=== PATIENT | male | born 1950 | race Caucasian/White ===

== ENCOUNTER → 2019-01-23 14:40 | Outpatient (CLI) | payer MEDICARE, SELFPAY ==
--- NOTE | 2019-01-23 | DI.ECHO.S_ITS ---
[facility] +---------+ : : [address] : : : : [id number] : : : : Phone: [phone]+ Echocardiogram Report + + :Name: WELLINGTON GILBERT Study Date: 01/23/2019 Height: 71 in : :[facility] Weight: 207 lb : : Gender: Male BSA: 2.1 m2 : :: 1950 Age: 68 yrs BP: 142/108 mmHg: :Reason For Study: BRADYCARDIA : : Performed By: [facility] Staff : :Referring: ALANA DEUTSCH : + + Interpretation Summary The left ventricle is normal in size. The ejection fraction is estimated to be 60-65%. Left ventricular wall motion is normal. Diastolic parameters suggest a relaxation abnormality of the left ventricle, consistent with probable normal filling pressures. The right ventricle is normal in size and function. Pulmonary artery pressures cannot be estimated because of the lack of a measurable TR jet velocity. The left atrium is moderately dilated. Right atrial size is normal. There is no significant valvular heart disease. The aortic root is normal size. Procedure: A two-dimensional transthoracic echocardiogram with color flow and Doppler was performed. The study quality was technically adequate. There is no prior echocardiogram noted for this patient. The patient was in normal sinus rhythm during the exam. Left Ventricle: The left ventricle is normal in size. There is normal left ventricular wall thickness. The ejection fraction is estimated to be 60-65%. Left ventricular wall motion is normal. Diastolic parameters suggest a relaxation abnormality of the left ventricle, consistent with probable normal filling pressures. Right Ventricle: The right ventricle is normal in size and function. Atria: The left atrium is moderately dilated. Right atrial size is normal. The interatrial septum is intact with no evidence for an atrial septal defect. Mitral Valve: The mitral valve is normal in structure and function. There is trace mitral regurgitation. Aortic Valve: The aortic valve is trileaflet. The aortic valve opens well. There is trace aortic regurgitation. Tricuspid Valve: The tricuspid valve is normal in structure and function. There is trace tricuspid regurgitation. Pulmonary artery pressures cannot be estimated because of the lack of a measurable TR jet velocity. Pulmonic Valve: The pulmonic valve is normal in structure and function. There is no pulmonic valvular regurgitation. There is no significant valvular heart disease. Great Vessels: The aortic root is normal size. The dimensions of the ascending aorta are normal. The pulmonary artery is normal size. The IVC is of normal diameter and collapses greater than 50% with a sniff. This suggests a low right atrial pressure of 3 mm Hg. Pericardium/ Pleura There is no pericardial effusion. There is no pleural effusion. MMode/2D Measurements & Calculations LVIDd: 4.5 cm LVOT diam: 2.1 cm LVIDs: 2.9 cm Ao root diam: 3.2 cm FS: 34.3 % Aortic Jxn: 2.9 cm EPSS: 0.57 cm asc Aorta Diam: 3.3 cm IVSd: 1.1 cm LVPWd: 0.99 cm LV edmonds. diameter/BSA (cm/m^2): 2.1 LV sys. diameter/BSA (cm/m^2): 1.4 LA A2 area: 26.5 cm2 RA long axis: 4.9 cm LA A4 area: 25.3 cm2 RA area: 16.5 cm2 LA length (vol): 5.6 cm RA vol: 47.4 ml LA vol: 100.8 ml RA : 22.2 ml/m2 LA vol index: 47.1 ml/m2 IVC diam: 1.9 cm TAPSE: 2.3 cm Doppler Measurements & Calculations Ao V2 max: 122.3 cm/sec MV E max zaire: 92.0 cm/sec Ao V2 mean: 79.6 cm/sec MV A max zaire: 102.5 cm/sec Ao max P.0 mmHg MV E/A: 0.90 Ao mean P.9 mmHg Med Peak E' Zaire: 7.7 cm/sec Ao V2 VTI: 29.6 cm E/E' med: 11.9 Lat Peak E' Zaire: 10.4 cm/sec E/E' lat: 8.8 E/e' average: 10.4 MV dec time: 0.18 sec PA V2 max: 81.3 cm/sec PA V2 mean: 55.2 cm/sec PA mean P.4 mmHg PA Accel Time: 0.14 sec Reading Physician:04:48 PM
== END ==
PROVIDERS: Family Provider Physician Assistant Medical; PCP Physician Assistant Medical; Visit Provider Internal Medicine Cardiovascular Disease
DX: R00.1 Bradycardia, unspecified (principal)
CPT/HCPCS: 93306

== ENCOUNTER → 2020-08-18 11:03 | Outpatient (CLI) | payer MEDICARE, SELFPAY | PROVIDERS: Family Provider Physician Assistant Medical; PCP Physician Assistant Medical; Referring Provider Orthopaedic Surgery; Visit Provider Orthopaedic Surgery | DX: Z01.818 Encounter for other preprocedural examination (principal); Z01.812 Encounter for preprocedural laboratory examination; R73.9 Hyperglycemia, unspecified; N39.0 Urinary tract infection, site not specified; Z51.81 Encounter for therapeutic drug level monitoring | CPT/HCPCS: 93005 ==

== ENCOUNTER → 2020-09-19 11:05 | Outpatient (CLI) | payer MEDICARE, SELFPAY ==
[2020-09-19 13:23] LABS: COVID19 -Nasal RAPID Negative (Negative)
== END ==
PROVIDERS: PCP Physician Assistant Medical; Visit Provider Physician Assistant
DX: Z01.812 Encounter for preprocedural laboratory examination (principal); Z20.822 Contact with and (suspected) exposure to COVID-19
CPT/HCPCS: 87635; C9803

== ENCOUNTER 2020-09-20 16:15 | Inpatient (IN) | payer MEDICARE, SELFPAY ==
[2020-09-13 09:39] VITALS: BMI 27.8
[2020-09-20] VITALS (11 sets, daily range): BP systolic 96–147; BP diastolic 51–88; PULSE 61–76; RESP 12–18; TEMP 35.7–36.6; O2SAT 92–98; BMI 27.8
[2020-09-20] MEDS: CELECOXIB 200 MG CAPSULE PO (09:16)
[2020-09-20] MEDS: PREGABALIN 75 MG CAPSULE PO (09:16)
[2020-09-20] MEDS: LACTATED RINGERS 1,000 ML 42 ML IV ×2 (09:24→13:32)
[2020-09-20] MEDS: VANCOMYCIN 1,000 MG/200 ML PIGGYBACK 200 MG IV (10:07)
--- NOTE | 2020-09-20 10:30 | DI.RAD.S_ITS ---
PROCEDURE: XR HIP W PEL IF DONE RT 2V INDICATIONS: RT ANTERIOR HIP/ inner op TECHNIQUE: AP pelvis with lateral view(s) of the right hip(s). COMPARISON: None. FINDINGS: Spot fluoroscopic intraoperative images demonstrating expected intraoperative alignment of hip arthroplasty components Dictated by: Connor Calles M.D. on 09/20/2020 at 16:16 Approved by: Connor Calles M.D. on 09/20/2020 at 16:16
--- NOTE | 2020-09-20 10:47 | PM.PREOP ---
Pre-operative Note COVID-19 COVID-19 status: Negative Interval Note History & Physical reviewed/Exam performed by Physician: Yes Changes to H&P: No
--- NOTE | 2020-09-20 11:09 | P.OP_ITS ---
Operative Date/Time/Diagnoses Date of procedure: 09/20/20 Time of procedure: 11:10 Pre-op diagnosis: Right hip osteoarthritis Post-op diagnosis: same Procedure & Clinicians Procedure: Right total hip arthroplasty anterior approach Same procedure as scheduled: Yes Indications: The patient has had progressively worsening right hip pain with radiographic changes consistent with arthritis. Non-operative management has failed and the patient has requested total hip replacement. The risks, benefits and alternatives to surgery were discussed with the patient prior to proceeding. Risks discussed included, but were not limited to, failure to relieve pain, leg length discrepancy, dislocation, stiffness, infection, nerve damage, deep venous thrombosis, pulmonary embolism, stroke, coma, heart attack, permanent paralysis and , as well as the potential need for eventual revision of the prosthetic. Surgeon: Helena Gonzalez Retail Presentation Specialist: Jonathan Lopez Anesthesia Type: General and Spinal Operative Notes Findings: Severe right hip osteoarthritis, good quality bone good stability Closure Type: primary Specimen(s): none sent Prosthetic devices, grafts, tissues, transplants, or devices: Gonzalez and Nephew 60 mm R3 cup, anthology standard offset size 10, +0 by 36 mm Oxinium head Estimated Blood Loss (mL): 250 Blood products transfused: none Procedure in detail: The patient was brought to the operating room. Patient was carefully positioned in the supine position. Time-out was performed and antibiotics were given. Anesthesia was induced. He was positioned in the on the table in order to allow hyperextension of the hip. The right lower extremity was prepped and draped in a standard sterile fashion. An anterior right hip incision was made 1 fingerbreadth lateral to the anterior superior iliac spine a nd extended distally towards the greater trochanter. Dissection was carried out through skin and subcutaneous tissues. The skin and subcutaneous tissues were carefully injected with Lidocaine with epi. Superficial hemostasis was achieved. The fascia over the tensor fascia marion was defined and incised with a knife. Two Allis clamps were used to grasp the fascia. Tensor fascia marion was retracted laterally. A gelpi retractor was placed. Dissection was carried out down along the neck. The circumflex vessels were carefully identified and cauterized with the Aqua Mantis. There was good visualization of the femoral neck. A Cobra was placed superior to the neck and the gluteus fibers were carefully stripped from that superior aspect of the capsule. A 2nd retractor was placed along the inferior aspect of the neck. The rectus insertion along the capsule was partially released. A 3rd retractor that was then gently placed over the rim of the acetabulum under the rectus. Capsule was carefully incised and released from the intertrochanteric line circumferentially superior to the mid sagittal line and inferiorly to the mid sagittal line until the lesser trochanter was palpable. A tag stitch was placed both in the superior and inferior limb of the capsular insertion. Along the acetabulum capsule was also released up to the mid sagittal 12:00 position. A portion of the labrum was resected. A saw was used to perform an osteotomy at the level of the intertrochanteric line and the junction of the superior femoral neck leaving approximately 1 finger breath of residual inferior neck above the lesser trochanter. A 2nd cut was made along the femoral neck at the base of the head and a napkin ring of neck was removed. Corkscrew was placed in the femoral head and the head was removed without difficulty. Retractors were then repositioned around the acetabulum. Residual labrum was resected and additional osteophytes were removed. A reamer that was 4 mm below the templated size was placed by hand in the acetabulum and it was reamed to centralize the acetabulum. It was then reamed up to 2 under the templated size and fluoroscopy was brought in to confirm the position of the reaming and depth of reaming. I reamed 1 under the anticipated size. A trial cup was placed and noted that it was appropriately sized and fluoroscopy confirmed position and depth. The component was open and inserted without difficulty fluoroscopic imaging was used to confirm that the cup had been adequately seated and was well positioned. It was further stabilized with a single screw. Neutral poly liner was placed. The cup was tested and noted to be stable. Attention was then directed to the femur. The femur was gently hyperextended additional capsular release was performed as needed in order to allow adequate visualization of the proximal femur with elevation of the femur. Patient was placed in a hyperextended slightly adducted position with maximum external rotation. Box osteotome was used to check for any residual neck as well as sclerotic bone along the trochanter. [place] pepper was placed in the femur. Additional broaching was performed. Canal finder was used to determine the al ignment of the canal and position. Size 1 broach was placed. The canal was then appropriately broached up to the templated size as long as there was adequate stability of the broach and serial advancement of the broach without excessive impingement. Specific attention was directed at avoiding varus attempting to direct the distal aspect of the broach more anteriorly and avoiding excessive anteversion. Trial reduction showed acceptable range of motion, good stability, no posterior impingement, buddhist of leg length and appropriate lateral shuck. I also hyperflexed the hip and checked that there was no impingement anteriorly and there was good stability with flexion, adduction and internal rotation. Marcaine and Exparel were injected.. The stem was placed without difficulty. Repeat trial reduction and x-ray showed acceptable overall position, length, and no evidence of the femoral fracture. Final head was placed. Wound was meticulously irrigated with normal saline. The hip was reduced and additional Exparel and Marcaine were injected. The capsule was closed with interrupted nonabsorbable sutures. The fascia of the tensor was closed with interrupted and running Vicryl. No drain was placed. Any tensor fascia marion muscle that appeared to be contused or injured which was a minimal amount was carefully resected. Capsule around the tensor was injected with Exparel and Marcaine. The skin was closed with barbed stitches for the subcutaneous tissue and skin. We also used surgical glue. The wound was dressed sterilely. Brief Betadine soak was also used and was meticulously irrigated with normal saline. Patient was transferred to recovery room in satisfactory condition. Complications: none Post-operative Condition: stable Disposition: Acute Care Plan for aftercare: The patient will be maintained on a standard total hip repl acement protocol with weight bearing as tolerated and anterior hip precautions. The patient will receive Aspirin and sequential compression devices for DVT prophylaxis. The patient will be discharged home when safe for the home environment.
[2020-09-20] MEDS: CEFAZOLIN 1 GM VIAL 2 GM IV ×2 (11:41→20:06)
[2020-09-20] MEDS: TRANEXAMIC ACID 1,000 MG VIAL 1000 MG INJ ×2 (11:48→14:13)
--- NOTE | 2020-09-20 12:00 | DI.RAD.S_ITS ---
PROCEDURE: XR HIP W PEL IF DONE RT 2V INDICATIONS: RT ANTERIOR HIP TECHNIQUE: AP pelvis and lateral view of the right hip acquired. COMPARISON: [facility], CR, XR PELVIS WITH LATERAL HIP RIGHT, 08/24/2020, 14:55. [facility], CR, XR HIP W PEL IF DONE RT 2V, 09/20/2020, 12:51. FINDINGS: Bones: Patient is status post right hip arthroplasty, with hardware components in expected positions. The hip joint appears congruent. The visualized bony structures appear intact. Soft tissues: Overlying postoperative changes are noted. No suspicious soft tissue densities. IMPRESSION: Expected appearance of the right hip arthroplasty. Dictated by: Bridger Chan M.D. on 09/20/2020 at 15:46 Approved by: Bridger Chan M.D. on 09/20/2020 at 15:47
--- NOTE | 2020-09-20 12:05 | SUR.OPER ---
Supine on padded [place] table with bilateral legs secured in padded positioning boots and suspended in positioning spars, operative leg in traction per surgeon. Head on one pillow. Arm on non-operative side secured on padded armboard <90 degrees abduction. Arm on operative side padded and resting across chest then secured with tape over sheet. Padded perineal post in place per surgeon.
[2020-09-20] MEDS: SODIUM CHLORIDE IRRIG SOLUTION 250 ML, POVIDONE-IODINE SPONGE STICKS 1 APPLIC IRR (12:09)
[2020-09-20] MEDS: BUPIVACAINE LIPOSOME 266 MG/20 ML VIAL INJ (12:11)
[2020-09-20] MEDS: BUPIVACAINE 0.5% (PF) VIAL 30 ML INJ (12:12)
[2020-09-20] MEDS: EPINEPHrine 1 MG/ML SUBCUT (12:14)
[2020-09-20] MEDS: ACETAMINOPHEN 325 MG TABLET 650 MG PO ×2 (16:46→21:20)
[2020-09-20] MEDS: IBUPROFEN 400 MG TABLET PO ×2 (16:46→21:20)
[2020-09-20] MEDS: LACTATED RINGERS 1,000 ML 125 ML IV (16:47)
[2020-09-20] MEDS: ONDANSETRON 4 MG/2 ML INJ IV (17:50)
[2020-09-20] MEDS: MAG HYDROX/ALUM/SIMETH 30 ML UDC PO (21:20)
[2020-09-20] MEDS: DOCUSATE 100 MG CAPSULE PO (21:20)
[2020-09-20] MEDS: ASPIRIN EC 81 MG TABLET PO (21:20)
[2020-09-21] VITALS (7 sets, daily range): BP systolic 100–128; BP diastolic 62–72; PULSE 57–66; RESP 16–18; TEMP 36.2–36.8; O2SAT 95–98
[2020-09-21] MEDS: IBUPROFEN 400 MG TABLET PO ×5 (00:54→16:46)
[2020-09-21] MEDS: LACTATED RINGERS 1,000 ML 125 ML IV (00:55)
[2020-09-21] MEDS: OXYCODONE IR 5 MG TABLET PO (03:46)
[2020-09-21] MEDS: MAG HYDROX/ALUM/SIMETH 30 ML UDC PO (03:47)
[2020-09-21] MEDS: CEFAZOLIN 1 GM VIAL 2 GM IV (03:47)
[2020-09-21 05:21] LABS: Hematocrit 35.8 % (41-53); Hemoglobin 11.9 g/dL (13.5-17.5)
[2020-09-21] MEDS: PANTOPRAZOLE DR 20 MG TABLET PO (06:21)
--- NOTE | 2020-09-21 07:15 | PC.NURSE ---
Patient was not able to urinate and bladder scan showed 750. A in and out cath was done with a 14 maldivian and 650 urine was drained. Patient is resting in bed with no other complaints
[2020-09-21] MEDS: ACETAMINOPHEN 325 MG TABLET 650 MG PO ×2 (08:24→14:21)
[2020-09-21] MEDS: ASPIRIN EC 81 MG TABLET PO (08:25)
[2020-09-21] MEDS: TAMSULOSIN 0.4 MG CAPSULE PO (08:25)
[2020-09-21] MEDS: DOCUSATE 100 MG CAPSULE PO (08:25)
[2020-09-21] MEDS: LOSARTAN 50 MG TABLET 100 MG PO (08:27)
[2020-09-21] MEDS: hydroCHLOROthiazide 25 MG TABLET PO (08:27)
[2020-09-21] MEDS: AMLODIPINE 5 MG TABLET 10 MG PO (08:29)
--- NOTE | 2020-09-21 10:20 | PT.IIE ---
Current Diagnoses Unilateral primary osteoarthritis, right hip (09/20/20) Surgery Performed Operation Date: 09/20/20 10:45 Actual Procedures p Total Hip Arthroplasty/Anterior Approach(Right) - Helena Gonzalez MD Medical History (Last Updated 09/13/20 @ 10:26 by Felicitas Richardson RN) Back pain COPD (chronic obstructive pulmonary disease) Gastritis (~2013) GERD (gastroesophageal reflux disease) HTN (hypertension) Kidney stones Osteoarthritis Physical Therapy Inpatient Evaluation/Re-Eval M1 PT/OT-IP Prior Functional Status Start: 09/21/20 12:28 Freq: NEEDED Status: Active Protocol: Document 09/21/20 10:20 AB (Rec: 09/21/20 12:40 AB [id number]) Medical Review Prior Functional Status Medical History Reviewed Yes Communication able to make needs known Mobility and Gait pt stated that he is independent with all mobilities and ambulation wtihout AD Social History Household Members spouse Living Arrangements House Number of Floors (Floors) Two Floors Number of Stairs To Enter/Railing? pt will stay on main level of the house has 2 steps to enter with R grab bar on door edge Home Environment High Toilet,Walk in Shower Home Equipment Raised Toilet Seat w/Armrests, Shower Seat without Backrest, Hand Held Shower M2 PT-IP Current Condition Start: 09/21/20 12:28 Freq: NEEDED Status: Active Protocol: Document 09/21/20 10:20 AB (Rec: 09/21/20 12:40 AB [id number]) Physical Therapy Current Condition Current Condition Evaluation Date 09/21/20 Treatment Diagnosis s/p R CARLOS anterior approach; difficulty in walking Onset Date 09/20/20 Precautions Anterior Hip Precautions No Hip Extension,No Hip External Rotation Weight Bearing Status Weight Bearing Status Weight Bear as Tolerated Allowed Weight Bearing Amount (enter % RLE WBAT or #) (%) M3 PT-IP Subjective Start: 09/21/20 12:28 Freq: NEEDED Status: Active Protocol: Document 09/21/20 10:20 AB (Rec: 09/21/20 12:40 AB [id number]) Subjective Physical Therapy Visit Type Type Initial Evaluation Visit Start Time 10:20 Visit Stop Time 11:37 Total Visit Minutes 77 Number of DOCTOR OF DENTAL MEDICINE Visits 0 Physical Therapy Visit Comments Patient Comments pt is agreeable to do PT Therapy Pain Assessment Pain When Pain Assessed At Rest Pain Present Pain Present Pain Reported Location right hip Intensity 2 Scale Used Numeric (0 - 10) Pain Management Techniques Apply Cold,Modification of Treatment,Re-positioning, Timing of Activity with Medications M4 PT-IP Mobility and Gait Start: 09/21/20 12:28 Freq: NEEDED Status: Active Protocol: Document 09/21/20 10:20 AB (Rec: 09/21/20 12:40 AB [id number]) PT-Bed Mobility Assessment Supine to Sit Supine to Sit Standby Assistance Sit to Supine Sit to Supine Standby Assistance PT-Transfer Assessment Sit to and From Stand Sit to and from Stand Standby Assistance,Contact Guard Assistance,1 Person Assistance,Use of Upper Extremities Equipment Transfer Assistive Device Gait Belt,Front Wheeled Walker Orthotic/Prosthetic Devices or Brace: No Transfers Transfer Destination Chair Transfer Technique ambulated using FWW Transfer Ability Level of Assist Standby Assistance,Contact Guard Assistance Comments Mobility Comments educated pt on anterior hip precautions. pt's spouse in room. pt completed supine to sit SBA. completed sit to stand x 2 reps CGA and cues. pt with unsteadiness on first attempt. educated on techniques and was more stable on succeeding sit to stands. pt ambulated in room using FWW CGA and cues. sat on chair. caregiver training conducted. educated pt's spouse on how to use safety belt and how to assist pt. spouse was able to assist pt with sit to stand and assisted pt with ambulation using FWW with initial CGA and then just SBA 100 ft. educated pt on stair climbing. educated spouse on how to assist pt with stairs. completed up/down steps using SPC and SANITATION ASSOCIATE on R CGA to min A. completed x 2 sets. continues to require cues with stair climbing from PT. spouse unable to instruct and cue pt . will need further training. pt assisted back to his room. ambulated from w/c to chair using FWW. spouse assisting. postiioned pt on chair. ice pack provided. call light and table placed within reach. Gait Assessment Gait Gait Assistance Required: Standby Assistance,Contact Guard Assist Distance (Feet) 100 Able to Maintain Weight Bearing Status Yes During Gait Assistive Devices Assistive Device Gait Belt,Front Wheeled Walker Orthotic/Prosthetic Devices or Brace: No Gait Deviations General Gait Pattern Antalgic,Decreased Stride Length,Decreased Feet Clearance Factors Limiting Gait Function Factors Limiting Gait Function Decreased Activity Tolerance, Decreased Strength,Pain,Poor Balance Stair Climbing Assessment Evaluation Level of Assist On Stairs Contact Guard Assistance, Minimal Assistance Devices Stair Climbing Assistive Devices Straight Cane Technique/Endurance Stair Climbing Technique Step to Step Number of Steps Climbed 3 Query Text: Stair Climbing Set # Repetitions (reps) 2 PT-Balance Assessment Sitting Balance and Reactions Static Sitting Balance Ability Good Dynamic Sitting Balance Ability Good Standing Balance and Reactions Static Standing Balance Ability Fair Dynamic Standing Balance Ability Fair Device Used FWW M5 PT-IP Objective Assessments Start: 09/21/20 12:28 Freq: NEEDED Status: Active Protocol: Document 09/21/20 10:20 AB (Rec: 09/21/20 12:40 AB [id number]) Orientation Orientation/Cognition Level of Alertness Alert Orientation Name,Place,Situation Language Function Ability No Deficits Noted Safety Awareness Decreased Safety Awareness Memory Description No Deficits Noted Gross Range of Motion Upper Extremity ROM Assessment Within Functional Limits Strength Lower Extremity Strength Assessment Right Impaired Hip 3+/5 Knee 4+/5 Coordination Assessment Gross Coordination Gross Coordination WNL Sensation Assessment Sensation Gross Sensation WNL Muscle Tone Muscle Tone WNL Yes M6 PT-IP Treatment Start: 09/21/20 12:28 Freq: NEEDED Status: Active Protocol: Document 09/21/20 10:20 AB (Rec: 09/21/20 12:40 AB [email or web address]) Physical Therapy Treatment Exercises Exercises Heel Slides Education Education Provided Precautions,Weight Bearing Status,Post-Op Packet,Safety M7 PT-IP Assessment and Plan Start: 09/21/20 12:28 Freq: NEEDED Status: Active Protocol: Document 09/21/20 10:20 AB (Rec: 09/21/20 12:40 AB [email or web address]) PT Summary Assessment and Plan Potential Rehabilitation Potential Good Status of Condition at Evaluation Stable Summary Impairments Pain,ROM,Strength,Balance, Coordination,Sensation,Tone, Cognition,Bed Mobility, Transfers,Gait,Activity Tolerance Assessment Summary pt requiring SBA to CGA with ambulation. caregiver training conducted but requires further training especially with stair climbing . will continue to assess progress. pt plans to go home and spouse to assist and has outpt PT set up. Goals Bed Mobility Goal Independent Transfer Goal Independent,Front Wheeled Walker Gait Goal Independent,Front Wheel Walker Gait Distance 150 Other Goals up/down 2 steps without rails: using SPC/SANITATION ASSOCIATE CGA Days to Meet Goals 3 Frequency of Treatment Frequency Of Treatment Twice a Day Treatment Plan Physical Therapy Treatment Plan Bed Mobility Training,Transfer Training,Gait Training, Therapeutic Exercise,Balance Retraining,Post Op Education, Discharge Planning,Hot or Cold Pack,Neuromuscular Re-ed, Coordination Retraining,Manual Therapy Precautions Anterior Hip Precautions No Hip Extension,No Hip External Rotation Other Precautions WBAT RLE Recommendations To Nursing Amount of Assist Needed 1 Person Assist Discharge Recommendations PT Discharge Recommendations Home with Assistance, Outpatient PT Transportation Needs at Discharge Private Vehicle
--- NOTE | 2020-09-21 12:40 | PM.PNPO.1 ---
Subjective Subjective Date Patient Seen: 09/21/20 Time Patient Seen: 08:30 Interval history: Patient doing well. Mild pain. Unable to void yet. cath x 2 so far. Has 2 steps into house. Has not yet worked with PT. Exam Vital Signs (past 8 hours): - 09/21/20 07:11 09/21/20 08:27 09/21/20 11:21 Temperature 97.3 F L Pulse Rate 60 61 Respiratory Rate 16 Blood Pressure 124/70 126/72 Pulse Oximetry 97 97 Oxygen Delivery Method Room Air Oxygen Flow Rate 2 Narrative Exam Narrative: 69 yo male NAD. Dressing CDI. Motor function intact bilat. LE. Objective Labs Result Diagrams: 09/21/20 04:30 Labs: Laboratory Results - last 24 hr 09/21/20 04:30 Hgb 11.9 L Hct 35.8 L PFSH Medical History Back pain COPD (chronic obstructive pulmonary disease) Gastritis (~2013) GERD (gastroesophageal reflux disease) HTN (hypertension) Kidney stones Osteoarthritis Surgical History History of arthroscopy of left shoulder (~2013) History of vasectomy Hx of arthroscopy of left knee Hx of lithotripsy (~2014) Hx of tonsillectomy Status post trigger finger release Social History household members: spouse Smoking Status: Former smoker alcohol intake: current Assessment & Plan Post-op Postoperative Procedures: Procedures Operation Date: 09/20/20 10:45 Actual Procedure Side Surgeon p Total Hip Arthroplasty/Anterior Approach Right Helena Gonzalez MD Urinary retention. Flomax has been ordered. Try to void on own this morning. Cath. x 1 if needed Mobilize with PT. Anterior hip precautions. Possible DC this afternoon if safe and able to void on his own. Postoperative day: 1
--- NOTE | 2020-09-21 13:43 | PC.NURSE ---
Patients R.anterior hip dressing is cdi. Patient finally voided in the toilet but this was unmeasured. Bladder scanned after for 275cc. Ortho PA aware and will be coming back in a couple of hours to check on patient and write scripts for pain medication. He is moving well with one person assist and walker, is comfortable helping him and he will be working with physical therapy again soon.
--- NOTE | 2020-09-21 13:45 | PT.IPTN ---
Current Diagnoses Unilateral primary osteoarthritis, right hip (09/20/20) Surgery Performed Operation Date: 09/20/20 10:45 Actual Procedures p Total Hip Arthroplasty/Anterior Approach(Right) - Helena Gonzalez MD Physical Therapy Treatment Note M2 PT-IP Current Condition Start: 09/21/20 12:28 Freq: NEEDED Status: Active Protocol: Document 09/21/20 10:20 AB (Rec: 09/21/20 12:40 AB [email or web address]) Physical Therapy Current Condition Current Condition Evaluation Date 09/21/20 Treatment Diagnosis s/p R CARLOS anterior approach; difficulty in walking Onset Date 09/20/20 Precautions Anterior Hip Precautions No Hip Extension,No Hip External Rotation Weight Bearing Status Weight Bearing Status Weight Bear as Tolerated Allowed Weight Bearing Amount (enter % RLE WBAT or #) (%) M3 PT-IP Subjective Start: 09/21/20 12:28 Freq: NEEDED Status: Active Protocol: Document 09/21/20 13:45 AB (Rec: 09/21/20 14:43 AB [email or web address]) Subjective Physical Therapy Visit Type Type Treatment Note Visit Start Time 13:45 Visit Stop Time 14:20 Total Visit Minutes 35 Number of ADMINISTRATOR PESTICIDE Visits 0 Physical Therapy Visit Comments Patient Comments pt is agreeable to do PT Therapy Pain Assessment Pain When Pain Assessed At Rest Pain Present Pain Present Pain Reported Location right hip Intensity 3 Scale Used increases to 6/10 with weight bearing Pain Management Techniques Modification of Treatment,Re- positioning,Timing of Activity with Medications M4 PT-IP Mobility and Gait Start: 09/21/20 12:28 Freq: NEEDED Status: Active Protocol: Document 09/21/20 13:45 AB (Rec: 09/21/20 14:43 AB [email or web address]) PT-Bed Mobility Assessment Supine to Sit Supine to Sit Standby Assistance Sit to Supine Sit to Supine Standby Assistance Scooting Scooting to Edge of Bed Standby Assistance Scooting Up and Down in Bed Standby Assistance PT-Transfer Assessment Sit to and From Stand Sit to and from Stand Standby Assistance,Contact Guard Assistance,1 Person Assistance,Use of Upper Extremities Equipment Transfer Assistive Device Gait Belt,Front Wheeled Walker Orthotic/Prosthetic Devices or Brace: No Comments Mobility Comments caregiver training conducted. pt completed bed mobility supine to sit SBA. spouse was able to put safety belt on and assist pt with sit to stand and ambulation using fWW . pt completed up/down steps using SPC/rail ascending with spouse assisting and then descending steps using SPC and spouse providing CAR SEAT UPHOLSTERER. assisted pt back to his room. ambulated from w/c to bed using FWW. spouse assited. completed sit to supine SBA. positioned pt on the bed. call light and table placed wtihin reach. Gait Assessment Gait Gait Assistance Required: Standby Assistance,Contact Guard Assist Distance (Feet) 75 Able to Maintain Weight Bearing Status Yes During Gait Assistive Devices Assistive Device Gait Belt,Front Wheeled Walker Orthotic/Prosthetic Devices or Brace: No Gait Deviations General Gait Pattern Antalgic,Decreased Stride Length,Decreased Feet Clearance Factors Limiting Gait Function Factors Limiting Gait Function Decreased Activity Tolerance, Decreased Strength,Limited Range of Motion,Pain,Poor Balance,Poor Safety Awareness Stair Climbing Assessment Evaluation Level of Assist On Stairs Minimal Assistance,1 Person Assistance Devices Stair Climbing Assistive Devices Tripod Cane/Hurry Cane,Right Railing Technique/Endurance Stair Climbing Direction Ascend and Descend Stair Climbing Technique Step to Step Number of Steps Climbed 3 Stair Climbing Set # Repetitions (reps) 1 Comments Stair Climbing Comments pls refer to mobility section for details M5 PT-IP Objective Assessments Start: 09/21/20 12:28 Freq: NEEDED Status: Active Protocol: Document 09/21/20 10:20 AB (Rec: 09/21/20 12:40 AB [email or web address]) Orientation Orientation/Cognition Level of Alertness Alert Orientation Name,Place,Situation Language Function Ability No Deficits Noted Safety Awareness Decreased Safety Awareness Memory Description No Deficits Noted Gross Range of Motion Upper Extremity ROM Assessment Within Functional Limits Strength Lower Extremity Strength Assessment Right Impaired Hip 3+/5 Knee 4+/5 Coordination Assessment Gross Coordination Gross Coordination WNL Sensation Assessment Sensation Gross Sensation WNL Muscle Tone Muscle Tone WNL Yes M6 PT-IP Treatment Start: 09/21/20 12:28 Freq: NEEDED Status: Active Protocol: Document 09/21/20 13:45 AB (Rec: 09/21/20 14:43 AB [email or web address]) Physical Therapy Treatment Education Education Provided Precautions,Safety M7 PT-IP Assessment and Plan Start: 09/21/20 12:28 Freq: NEEDED Status: Active Protocol: Document 09/21/20 13:45 AB (Rec: 09/21/20 14:43 AB [email or web address]) PT Summary Assessment and Plan Potential Rehabilitation Potential Good Summary Impairments Pain,ROM,Strength,Balance, Coordination,Sensation,Tone, Cognition,Bed Mobility, Transfers,Gait,Activity Tolerance Progress Towards Goals Progressing Toward Goals Assessment Summary caregiver training conducted and spouse was able to assist pt safely. pt plans to go home with spouse to assist him . pt may go home when medically stable. Goals Bed Mobility Goal Independent Transfer Goal Independent,Front Wheeled Walker Gait Goal Independent,Front Wheel Walker Gait Distance 150 Other Goals up/down 2 steps without rails: using SPC/CAR SEAT UPHOLSTERER CGA Days to Meet Goals 3 Frequency of Treatment Frequency Of Treatment Twice a Day Treatment Plan Physical Therapy Treatment Plan Bed Mobility Training,Transfer Training,Gait Training, Therapeutic Exercise,Balance Retraining,Post Op Education, Discharge Planning,Hot or Cold Pack,Neuromuscular Re-ed, Coordination Retraining,Manual Therapy Precautions Anterior Hip Precautions No Hip Extension,No Hip External Rotation Other Precautions WBAT RLE Recommendations To Nursing Amount of Assist Needed 1 Person Assist Discharge Recommendations PT Discharge Recommendations Home with Assistance, Outpatient PT Transportation Needs at Discharge Private Vehicle
[2020-09-21] MEDS: OXYCODONE IR 5 MG TABLET 10 MG PO (16:20)
--- NOTE | 2020-09-21 17:08 | CM.DANOTE ---
Patient is a 69 yo male who was admitted on 09/20/20 for RTHA. Pt has [facility] and [employer] for insurance and his PCP is Dr. Amanda Agosto. EMR was reviewed. Per MD, pt tolerated procedure well and to work with therapies. Per RN, pt having some urinary retention. Per PT, pt was able to participate and spouse bedside for CG training and recommending safe d/c home with spouse assist and outpt PT. No bedside assessment completed at this time due to triage needs and no identified barriers. Plan: SW to follow for plan of home with spouse assist and outpt PT. No SW needs at this time, please refer if indicated. MILVIA Ye
--- NOTE | 2020-09-21 17:22 | PC.NURSE ---
Addendum entered by Kira Oglesby R.N. 09/21/20 19:05: Able to locate Dr. Gonzalez between surgical cases. Informed MD pt has voided often and significant amount and is ready to discharge pending prescriptions. These were generated per Dr. Gonzalez and provided to pt and pt's spouse. Discharge instructions provided to pt and pt's spouse in written and verbal format. Pt left hospital with spouse via wheelchair with [employer]SEM[employer] TECHNICIAN escort to private vehicle. Pt left hospital in stable condition. Aquacel dressing to right anterior hip was dry and intact. Pt able to bear own weight, ambulate with walker and transfer self from chair to wheelchair for discharge to home. Original Note: Pt requests pain meds for right hip surgical pain 10/25 stating significant spasms. Pt was given oxycodone 10 mg as per emar and ice replaced to right hip. Pt does report relief with these interventions. Pt and pt's spouse are eager for discharge now that pt has voided sufficiently. Multiple phone calls by this caption writer to locate TATYANA Castillo who per dayshift report will be discharging provider. Located PA is in the O.R. in a case and pt and pt's spouse were informed. Spouse states desires to use [facility] which closes @ 5:30 p.m. Backup plan pending TATYANA's rounding this evening is for pt and pt's spouse to use [facility] in [place] which is open until 9 p.m. Assured pt and pt's spouse pt will be not sent home without pain medications available throughout the night. Pt taking diet well.
== END 2020-09-21 19:10 | disposition home or self-care (01) | DRG 554 ==
LOC: OR 09-22 10:15 → AC 09-22 10:16
PROVIDERS: Admitting Provider Orthopaedic Surgery; PCP Physician Assistant Medical; Referring Provider Orthopaedic Surgery; Visit Provider Orthopaedic Surgery
PROC: (CPT 27130; principal; 2020-09-20 10:45)
DX: M16.11 Unilateral primary osteoarthritis, right hip (principal); I10 Essential (primary) hypertension; K21.9 Gastro-esophageal reflux disease without esophagitis; R33.9 Retention of urine, unspecified; Z87.891 Personal history of nicotine dependence; Z20.822 Contact with and (suspected) exposure to COVID-19
CPT/HCPCS: 36415; 73502; 76000; 85014; 85018; 87635; 97116; 97161; 97530; C1776; C9803; G0378; C9290; J0171; J0690; J1100; J2250; J2274; J2405; J2704; J3010

== ENCOUNTER → 2022-04-16 11:04 | Outpatient (CLI) | payer MEDICARE, SELFPAY ==
[2020-09-20 16:31] VITALS: BMI 27.8
--- NOTE | 2022-04-16 11:08 | DI.NM.S_ITS ---
PROCEDURE: NM BONE 3 PHASE RADIOPHARMACEUTICAL: 20.8 mCi Tc-99m MDP IV. INDICATIONS: Right lower quadrant pain TECHNIQUE: Multiple bone scintigrams were obtained after intravenous injection of Tc-99m MDP, including flow, blood pool, and delayed images centered to the region of interest. COMPARISON: [facility], CR, XR PELVIS WITH LATERAL HIP RIGHT, 10/11/2021, 16:20. [facility], CR, XR PELVIS WITH LATERAL HIP RIGHT, 04/03/2022, 9:51. FINDINGS: A triple phase bone scan was obtained, including flow, blood pool and delayed images centered to the hips. There is right hip arthroplasty. Flow and blood pool images demonstrate symmetrical vascular activity in pelvis and hips. Delayed images demonstrate mildly increased activity around right hip prosthesis, nonspecific but most likely secondary to postsurgical change. There is increased uptake in the left hip compatible with degenerative joint disease. IMPRESSION: 1. Right hip arthroplasty. Low-level increased uptake around the hip prosthesis is nonspecific and most compatible with postsurgical change. 2. Degenerative joint disease in left hip. Dictated by: Bonnie Watts M.D. on 04/16/2022 at 17:22 Approved by: Bonnie Watts M.D. on 04/17/2022 at 8:25
== END ==
PROVIDERS: PCP Physician Assistant Medical; Referring Provider Student in an Organized Health Care Education/Training Program; Visit Provider Student in an Organized Health Care Education/Training Program
DX: R10.31 Right lower quadrant pain (principal); M16.12 Unilateral primary osteoarthritis, left hip; Z96.641 Presence of right artificial hip joint
CPT/HCPCS: 78315; A9503

== ENCOUNTER 2022-08-26 21:20 | Emergency (ER) | payer MEDICARE, SELFPAY ==
[2020-09-20 16:31] VITALS: BMI 27.8
[2022-08-26 21:28] VITALS: BP 114/77; PULSE 60; RESP 16; TEMP 36.7; O2SAT 97; BMI 28.5
--- NOTE | 2022-08-26 22:57 | DI.CT.S_ITS ---
PROCEDURE: CT LUMBAR SPINE WO CON INDICATIONS: Left side pain TECHNIQUE: Noncontrast 3 mm thick sections acquired from the T12 level to the sacrum. Sagittal and coronal reformats were constructed. For radiation dose reduction, the following was used: automated exposure control. COMPARISON: [facility], CR, XR LUMBAR SPINE WITH FLEXION EXTENSION 5 VIEWS, 03/06/2022, 8:54. Outside Film, MR, MR LUMBAR SPINE WITHOUT CONTRAST, 03/14/2022, 15:51. FINDINGS: Image quality: Excellent. Bones: There is preserved bony alignment. No acute vertebral body compression fractures. No suspicious lytic or blastic bony lesions. There is partial fusion anteriorly at T12-L1 redemonstrated. No pars defects. T12-L1: No spinal canal or neural foraminal narrowing. L1-L2: No spinal canal or neural foraminal narrowing. L2-L3: No spinal canal or neural foraminal narrowing. L3-L4: Mild facet arthropathy and minimal disc bulge. No spinal canal narrowing. There is mild right neural foraminal narrowing. L4-L5: Minimal disc bulge and mild facet arthropathy. No spinal canal narrowing. There is mild bilateral neural foraminal narrowing. L5-S1: Small broad-based disc bulge. No spinal canal narrowing. There is minimal right neural foraminal narrowing. Soft tissues: No retroperitoneal masses or hematomas. Visualized aorta is normal in caliber. IMPRESSION: 1. No acute fracture or subluxation. 2. No high-grade spinal canal or neural foraminal narrowing. 3. Mild bilateral neural foraminal narrowing at L4-5 and on the right at L3-L4. Dictated by: Chris Marino M.D. on 08/27/2022 at 0:01 Approved by: Chris Marino M.D. on 08/27/2022 at 0:12
--- NOTE | 2022-08-26 22:57 | ED.BACK ---
HPI - Back Pain/Injury <Frederic Beal MD - Last Filed: 08/29/22 07:06> General Chief Complaint: Back Pain/Injury Stated Complaint: acute on chronic back pain Time Seen by Provider: 08/26/22 22:56 Source: patient and EMS History of Present Illness HPI Narrative: Patient flown here for complaints of left lower back pain. Patient states this is his 3rd visit to emergency department for this pain in the past 2 years. He states since his right hip surgery he is had these flare-ups. He is scheduled for reconstruction of the right hip prosthesis. Patient states he gets spasm in the left lower back. Today he has been saline and went for a walk and sat down on a bench but had immediate pain. No abdominal pain no chest pain. His having spasms to the left lower lumbar muscle area. Patient states this is not new. He is had Toradol and methocarbamol for this pain. He was given fentanyl prior to arrival by EMS. Patient denies denies any saddle paresthesia numbness tingling or weakness to the legs or feet. No bowel or bladder incontinence. Patient has not had any imaging of the lower spine Related Data Home Medications Medication Instructions Recorded Confirmed acetaminophen 500 mg tablet 1,000 mg PO BID 09/13/20 09/20/20 felodipine 10 mg tablet,extended 10 mg PO QPM 09/13/20 09/20/20 release 24 hr losartan 100 1 tab PO DAILY 09/13/20 09/20/20 mg-hydrochlorothiazide 25 mg tablet meloxicam 15 mg tablet 15 mg PO DAILY 09/13/20 09/20/20 omeprazole 20 mg capsule,delayed 20 mg PO DAILY 09/13/20 09/20/20 release tamsulosin 0.4 mg capsule 0.4 mg PO DAILY 09/13/20 09/20/20 Aleve 20 PO 09/20/20 mupirocin 2 % topical ointment topical 09/20/20 Previous Rx's Medication Instructions Recorded aspirin 81 mg tablet,delayed 81 mg PO BID #60 tabs 09/21/20 release oxycodone 5 mg tablet 5 mg PO Q3HR PRN Pain, Moderate 09/21/20 (4-6) #30 tabs polyethylene glycol 3350 17 gram 17 gm PO DAILY PRN Constipation 09/21/20 oral powder packet #20 ea diazepam 10 mg tablet 10 mg PO BID 4 days #8 tabs 06/12/23 oxycodone 5 mg tablet 5 mg PO Q6H PRN pain #12 tabs 08/27/22 Allergies Allergy/AdvReac Type Severity Reaction Status Date / Time No Known Drug Allergies Allergy Verified 09/13/20 10:15 Review of Systems <Frederic Beal MD - Last Filed: 08/29/22 07:06> Review of Systems Narrative: GENERAL: negative chills, fatigue, malaise, fever, sweats. HEENT: negative sinus pain, ear pain, sore throat RESPIRATORY: negative dyspnea, cough CARDIOVASCULAR: negative chest pain, palpitations GASTROINTESTINAL: negative nausea, vomiting, abdominal pain : negative dysuria, frequency, hematuria MUSCULOSKELETAL: Positive back and muscle or bony pain SKIN: negative rash, skin lesions NEUROLOGIC: negative weakness, numbness ROS Unobtainable: All systems reviewed & are unremarkable except as noted in HPI and below Patient History <Frederic Beal MD - Last Filed: 08/29/22 07:06> Medical History Back pain COPD (chronic obstructive pulmonary disease) Gastritis (~2013) GERD (gastroesophageal reflux disease) HTN (hypertension) Kidney stones Osteoarthritis Surgical History History of arthroscopy of left shoulder (~2013) History of vasectomy Hx of arthroscopy of left knee Hx of lithotripsy (~2014) Hx of tonsillectomy Status post trigger finger release Social History household members: spouse Smoking Status: Former smoker alcohol intake: current Smoking Status: Former smoker alcohol intake frequency: 0-2 drinks per day Substance Use Type: does not use Exam <Frederic Beal MD - Last Filed: 08/29/22 07:06> Narrative Exam Narrative: GENERAL: in no distress, not toxic not dyspneic HEAD: Normocephalic. EYES: Pupils equal round NECK: Trachea midline. CARDIOVASCULAR: Regular rate and rhythm without murmurs RESPIRATORY: Clear to auscultation. Breath sounds equal bilaterally. No wheezes, rales, or rhonchi. GASTROINTESTINAL: Abdomen soft, non-tender EXTREMITIES: No gross deformities. BACK: Reproducible left lower paralumbar muscle tenderness and spasm. Increased pain with left straight leg raise at 30?. Light touch intact to leg and foot. Shoes removed. Any type of rotation and movement in the bed trigger spasm in the left lower paralumbar muscles. NEURO: AOx4. SKIN: Warm and dry PSYCH: Not anxious, is cooperative Initial Vital Signs Initial Vital Signs: Vital Signs Temperature 98.1 F 08/26/22 21:28 Pulse Rate 60 08/26/22 21:28 Respiratory Rate 16 08/26/22 21:28 Blood Pressure 114/77 08/26/22 21:28 Pulse Oximetry 97 08/26/22 21:28 Oxygen Delivery Method Room Air 08/26/22 21:28 <Fariba Salmeron DO - Last Filed: 08/27/22 09:25> Initial Vital Signs Initial Vital Signs: Vital Signs Temperature 98.1 F 08/26/22 21:28 Pulse Rate 60 08/26/22 21:28 Respiratory Rate 16 08/26/22 21:28 Blood Pressure 114/77 08/26/22 21:28 Pulse Oximetry 97 08/26/22 21:28 Oxygen Delivery Method Room Air 08/26/22 21:28 Course <Frederic Beal MD - Last Filed: 08/29/22 07:06> Orders Ordered: Discontinued Medications Diazepam (Diazepam 10 Mg/2 Ml Syringe) 5 mg IV NOW ONE Stop: 08/26/22 22:57 Last Admin: 08/26/22 23:07 Dose: 5 mg Documented By: IRENE Diazepam (Diazepam 10 Mg/2 Ml Syringe) 5 mg IV NOW ONE Stop: 08/27/22 00:53 Last Admin: 08/27/22 01:03 Dose: 5 mg Documented By: PAWEL Hydromorphone HCl (Hydromorphone 1 Mg Inj) 1 mg IV NOW ONE Stop: 08/27/22 06:47 Last Admin: 08/27/22 07:26 Dose: 1 mg Documented By: FLAVIA Dexamethasone 20 mg/ Sodium (Chloride) 52 mls @ 208 mls/hr IV NOW ONE Stop: 08/27/22 06:46 Last Infusion: 08/27/22 07:34 Dose: 0 mls/hr Documented By: Admin: 08/27/22 07:12 Dose: 208 mls/hr Documented By: FLAVIA Ketorolac Tromethamine (Ketorolac 30 Mg/Ml Vial) 15 mg IV NOW ONE Stop: 08/26/22 22:57 Last Admin: 08/26/22 23:07 Dose: 15 mg Documented By: IRENE Vital Signs Vital signs: Vital Signs - 8 hr 08/27/22 07:34 08/27/22 08:02 Pulse Rate 56 L 61 Respiratory Rate 12 12 Blood Pressure 153/87 H 153/87 H Pulse Oximetry 96 94 Oxygen Delivery Method Room Air Room Air <Fariba Salmeron DO - Last Filed: 08/27/22 09:25> Orders Ordered: Discontinued Medications Diazepam (Diazepam 10 Mg/2 Ml Syringe) 5 mg IV NOW ONE Stop: 08/26/22 22:57 Last Admin: 08/26/22 23:07 Dose: 5 mg Documented By: IRENE Diazepam (Diazepam 10 Mg/2 Ml Syringe) 5 mg IV NOW ONE Stop: 08/27/22 00:53 Last Admin: 08/27/22 01:03 Dose: 5 mg Documented By: PAWEL Hydromorphone HCl (Hydromorphone 1 Mg Inj) 1 mg IV NOW ONE Stop: 08/27/22 06:47 Last Admin: 08/27/22 07:26 Dose: 1 mg Documented By: FLAVIA Dexamethasone 20 mg/ Sodium (Chloride) 52 mls @ 208 mls/hr IV NOW ONE Stop: 08/27/22 06:46 Last Infusion: 08/27/22 07:34 Dose: 0 mls/hr Documented By: Admin: 08/27/22 07:12 Dose: 208 mls/hr Documented By: FLAVIA Ketorolac Tromethamine (Ketorolac 30 Mg/Ml Vial) 15 mg IV NOW ONE Stop: 08/26/22 22:57 Last Admin: 08/26/22 23:07 Dose: 15 mg Documented By: IRENE Vital Signs Vital signs: Vital Signs - 8 hr 08/27/22 07:34 08/27/22 08:02 Pulse Rate 56 L 61 Respiratory Rate 12 12 Blood Pressure 153/87 H 153/87 H Pulse Oximetry 96 94 Oxygen Delivery Method Room Air Room Air MDM - Back Pain/Injury <Frederic Beal MD - Last Filed: 08/29/22 07:06> MDM Narrative Medical decision making narrative: Patient flown here for complaints of left lower back pain. Patient states this is his 3rd visit to emergency department for this pain in the past 2 years. He states since his right hip surgery he is had these flare-ups. He is scheduled for reconstruction of the right hip prosthesis. Patient states he gets spasm in the left lower back. Today he has been saline and went for a walk and sat down on a bench but had immediate pain. No abdominal pain no chest pain. His having spasms to the left lower lumbar muscle area. Patient states this is not new. He is had Toradol and methocarbamol for this pain. He was given fentanyl prior to arrival by EMS. Patient denies denies any saddle paresthesia numbness tingling or weakness to the legs or feet. No bowel or bladder incontinence. Patient has not had any imaging of the lower spine After history and exam Valium Toradol CT lumbar spine MDM CC: Left lower back pain Complicating co-morbidities: No prior history of back surgery Data collected from: Patient Medical records reviewed: No recent visit for this complaint Differential considered: Includes but not limited to sciatica lumbar radiculopathy muscle spasm falls desk aortic dissection kidney stone Exam documented above, pertinent findings include: Reproducible left paralumbar muscle tenderness and spasm Lab Test results independently reviewed as above. Pertinent findings: None indicated at this time Imaging studies independently reviewed: CT lumbar spine Consultations: None indicated at this time Treatments: Valium Toradol Re-evaluations: 12:36 a.m.. now at bedside. Patient able to sit up in bed with out significant pain. He does feel a lot better after Valium and Toradol. He feels like he can go home with his now. I did review imaging results. They do agree likely these episodes of spasm or due to his right hip malalignment. This will be corrected in the future. They do agree for short course Valium prescription as this seems to help him a lot more than the methocarbamol. It will be used for breakthrough pain. Return precautions reviewed. Neurologically intact. Nontoxic at discharge. Discussion: Appropriate for discharge home. Exam and imaging otherwise reassuring. Patient has significant improvement with Valium/antispasmodic. Neurologically intact. Return precautions reviewed. They desire discharge home Diagnosis: Back spasm 2:15 a.m.. At time of discharge spasms return. Requiring repeat Valium. However patient has intractable pain at this time and would like observation here and recheck in the morning for improvement 6:45 a.m.. Attempted to get patient up again however spasm recurred left lower back. Unable to get himself out of bed. At this time will try Dilaudid and Decadron. 7:00 a.m. Lian: Sign out to Dr Salmeron, patient is motivated to try to get home however has intense muscle spasm left lower back. Change in pain medication ordered this morning to see for improvement Patient signed out to me by Dr. Beal, I have seen evaluated patient myself. He just received Dilaudid 20 mg of dexamethasone feeling a bit better. He is now been in the emergency department for over 10 hours a back spasm. Discussion of pain management and what to do at home. This definitely does seem to be like a back spasm he is had this before hurts to breathe hurts to move hurts to touch. Unlikely to be something like dissection. The patient's pain is better after medication. Able to get dressed and get into a wheelchair. At this time no need for further workup or medication <Fariba Salmeron, - Last Filed: 08/27/22 09:25> [facility] Narrative Medical decision making narrative: Patient flown here for complaints of left lower back pain. Patient states this is his 3rd visit to emergency department for this pain in the past 2 years. He states since his right hip surgery he is had these flare-ups. He is scheduled for reconstruction of the right hip prosthesis. Patient states he gets spasm in the left lower back. Today he has been saline and went for a walk and sat down on a bench but had immediate pain. No abdominal pain no chest pain. His having spasms to the left lower lumbar muscle area. Patient states this is not new. He is had Toradol and methocarbamol for this pain. He was given fentanyl prior to arrival by EMS. Patient denies denies any saddle paresthesia numbness tingling or weakness to the legs or feet. No bowel or bladder incontinence. Patient has not had any imaging of the lower spine After history and exam Valium Toradol CT lumbar spine [facility] CC: Left lower back pain Complicating co-morbidities: No prior history of back surgery Data collected from: Patient Medical records reviewed: No recent visit for this complaint Differential considered: Includes but not limited to sciatica lumbar radiculopathy muscle spasm falls desk aortic dissection kidney stone Exam documented above, pertinent findings include: Reproducible left paralumbar muscle tenderness and spasm Lab Test results independently reviewed as above. Pertinent findings: None indicated at this time Imaging studies independently reviewed: CT lumbar spine Consultations: None indicated at this time Treatments: Valium Toradol Re-evaluations: 12:36 a.m.. now at bedside. Patient able to sit up in bed with out significant pain. He does feel a lot better after Valium and Toradol. He feels like he can go home with his now. I did review imaging results. They do agree likely these episodes of spasm or due to his right hip malalignment. This will be corrected in the future. They do agree for short course Valium prescription as this seems to help him a lot more than the methocarbamol. It will be used for breakthrough pain. Return precautions reviewed. Neurologically intact. Nontoxic at discharge. Discussion: Appropriate for discharge home. Exam and imaging otherwise reassuring. Patient has significant improvement with Valium/antispasmodic. Neurologically intact. Return precautions reviewed. They desire discharge home Diagnosis: Back spasm 2:15 a.m.. At time of discharge spasms return. Requiring repeat Valium. However patient has intractable pain at this time and would like observation here and recheck in the morning for improvement 6:45 a.m.. Attempted to get patient up again however spasm recurred left lower back. Unable to get himself out of bed. At this time will try Dilaudid and Decadron. 7:00 a.m. Lian: Sign out to Dr Salmeron, patient is motivated to try to get home however has intense muscle spasm left lower back. Change in pain medication ordered this morning to see for improvement Patient signed out to me by Dr. Beal, I have seen evaluated patient myself. He just received Dilaudid 20 mg of dexamethasone feeling a bit better. He is now been in the emergency department for over 10 hours a back spasm. Discussion of pain management and what to do at home. This definitely does seem to be like a back spasm he is had this before hurts to breathe hurts to move hurts to touch. Unlikely to be something like dissection. The patient's pain is better after medication. Able to get dressed and get into a wheelchair. At this time no need for further workup or medication Discharge Plan Departure Patient Disposition: Home Clinical Impression: Back muscle spasm Instructions: DI for Back Spasm Activity Restrictions/Additional Instructions: No driving or operating machinery tonight or when taking prescribed Valium/diazepam for muscle spasm. See family doctor this week for re-evaluation. Return if worse if any questions or concerns. At this time please increase activity as tolerated. Light stretching heating pad will also help. Light activity is encouraged no strenuous activity. You may try arnica cream [id number] oxycodone 1 tablet every 6 hours if needed for severe pain Tylenol 1000 mg every 6 hours if needed for [id number] pain Motrin 600 mg every 6 hours if needed for [id number] pain\ CONTROLLED SUBSTANCE DISCHARGE (Narcotoic/benzodiazepine/Flexeril/Phenergan) 1. You have been prescribed narcotic medications, it does have acetaminophen/Tylenol/paracetamol in it, DO NOT TAKE MORE THAN 4,00mg in 24 hours of Tylenol. TRAMADOL DOES NOT CONTAIN TYLENOL 2. Please understand that we cannot provide further refills of narcotics, benzodiazepines or controlled substances through the ED and her pain management will need to be through your provider. 3. While on these medications you cannot drive or operate heavy machinery. 4. You cannot sign legal documents or perform any duties such as this. 5. As long as you're taking opiate pain medications he should also be taking a stool softener such as Colace, Dulcolax, MiraLAX or prune juice, to help avoid constipation. Prescriptions: New diazepam 10 mg tablet 10 mg PO BID 4 Days Qty: 8 0RF oxycodone 5 mg tablet 5 mg PO Q6H PRN (Reason: pain) Qty: 12 0RF No Action meloxicam 15 mg Tablet 15 mg PO DAILY acetaminophen 500 mg Tablet 1,000 mg PO BID losartan-hydrochlorothiazide 100-25 mg Tablet 1 tab PO DAILY omeprazole 20 mg Capsule,Delayed Release(Dr/Ec) 20 mg PO DAILY felodipine 10 mg Tablet Extended Release 24 Hr 10 mg PO QPM tamsulosin 0.4 mg Capsule 0.4 mg PO DAILY mupirocin 2 % ointment TOPICAL Aleve capsule 20 PO polyethylene glycol 3350 17 gram Powder In Packet 17 gm PO DAILY PRN (Reason: Constipation) Qty: 20 0RF aspirin 81 mg Tablet,Delayed Release (Dr/Ec) 81 mg PO BID Qty: 60 0RF oxycodone 5 mg Tablet 5 mg PO Q3HR PRN (Reason: Pain, Moderate (4-6)) Qty: 30 0RF Referrals: Amanda Agosto PA-C [Primary Care Provider] - Stand Alone Forms: Patient Portal/API
[2022-08-26] MEDS: diazePAM 10 MG/2 ML SYRINGE 5 MG IV (23:07)
[2022-08-26] MEDS: KETOROLAC 30 MG/ML VIAL 15 MG IV (23:07)
[2022-08-27 00:57] VITALS: BP 152/79; PULSE 66; RESP 18; O2SAT 99
[2022-08-27] MEDS: diazePAM 10 MG/2 ML SYRINGE 5 MG IV (01:03)
[2022-08-27] MEDS: dexAMETHasone 20 MG in SODIUM CHLORIDE 0.9% 50 ML 208 MG IV (07:12)
[2022-08-27] MEDS: HYDROMORPHONE 1 MG INJ IV (07:26)
[2022-08-27 07:34] VITALS: BP 153/87; PULSE 56; RESP 12; O2SAT 96
[2022-08-27 08:02] VITALS: BP 153/87; PULSE 61; RESP 12; O2SAT 94
== END 2022-08-27 08:04 | disposition home or self-care (01) ==
PROVIDERS: Emergency Provider Emergency Medicine; PCP Physician Assistant Medical
DX: M62.830 Muscle spasm of back (principal); M54.50 Low back pain, unspecified
CPT/HCPCS: 72131; 96365; 96375; 96376; 99283; 99284; J1100; J1170; J1885; J3360

== ENCOUNTER → 2024-12-19 10:52 | Outpatient (CLI) | payer MEDICARE, SELFPAY ==
[2020-09-20 16:31] VITALS: BMI 27.8
--- NOTE | 2024-12-19 10:55 | DI.MRI.S_ITS ---
PROCEDURE: MR SHOULDER RT WO CON INDICATIONS: R/O TEARS TECHNIQUE: Noncontrast oblique coronal T2 fast spin echo with fat saturation, oblique sagittal T1 spin echo and T2 fast spin echo with fat saturation, axial T1 spin echo and T2 fast spin echo with fat saturation through the shoulder. COMPARISON: None. FINDINGS: Quality: Adequate. Tendons: Rotator cuff tendons: Full-thickness partial width tear of the overlapping supraspinatus and infraspinatus tendons at the critical zone measuring 1.3 centimeter in retraction an approximately 1.5 centimeter in width. Additional full-thickness tearing of the superior 2/3 of the subscapularis tendon. Teres minor tendon is intact. Long head of biceps tendon: High-grade partial tear of long head of biceps tendon with medial dislocation. Muscles: No disproportionate fatty degeneration of the rotator cuff musculature. Acromioclavicular joint: Moderate degenerative change. Glenohumeral joint: Labrum: Unremarkable. Cartilage: No focal defect. Glenoid rim marginal osteophytes. Fluid: No effusion. Capsule: No pericapsular inflammation or scarring. Alignment: No dislocation. Bursa: Subacromial/subdeltoid bursa: Distended Subcoracoid bursa: Nondistended. Bones: No fracture. IMPRESSION: Large full-thickness supraspinatus/infraspinatus tendon tear and full-thickness partial width subscapularis tendon tear. High-grade partial tear of long head of biceps tendon with medial dislocation. Acromioclavicular and glenohumeral osteoarthritis. Dictated by: Kel Juarez M.D. on 12/21/2024 at 16:17 Approved by: Kel Juarez M.D. on 12/21/2024 at 16:20
== END ==
LOC: MRI 10:54
PROVIDERS: PCP Physician Assistant Medical; Referring Provider Orthopaedic Surgery; Visit Provider Orthopaedic Surgery
DX: M75.121 Complete rotator cuff tear or rupture of right shoulder, not specified as traumatic (principal); S46.111A Strain of muscle, fascia and tendon of long head of biceps, right arm, initial encounter; M19.011 Primary osteoarthritis, right shoulder
CPT/HCPCS: 73221